=== PATIENT | male | born 1985 | race Caucasian/White ===

== ENCOUNTER 2016-10-20 21:39 | Emergency (ER) | payer OTHER ==
[2016-10-20 22:08] VITALS: BP 116/73
== END 2016-10-20 23:12 | disposition left against medical advice (07) ==
LOC: ED 21:39
DX: Z53.21 Procedure and treatment not carried out due to patient leaving prior to being seen by health care provider (principal)

== ENCOUNTER 2016-11-08 23:44 | Emergency (ER) | payer OTHER ==
[2016-11-08 23:47] VITALS: BP 127/69
== END 2016-11-09 01:11 | disposition left against medical advice (07) ==
LOC: ED 23:44
DX: Z53.21 Procedure and treatment not carried out due to patient leaving prior to being seen by health care provider (principal)

== ENCOUNTER 2017-12-04 14:34 | Emergency (ER) | payer MEDICAID ==
[~2017-12-04] VITALS: Ht 177.8 cm; Wt 66.2 kg
[2017-12-04 14:38] VITALS: Ht 177.8 cm; Wt 66.2 kg
[2017-12-04 15:40] VITALS: BP 119/66
== END 2017-12-04 15:40 | disposition home or self-care (01) ==
LOC: ED 14:34
DX: L02.511 Cutaneous abscess of right hand (principal); F17.210 Nicotine dependence, cigarettes, uncomplicated